=== PATIENT | male | born 1985 | race Caucasian/White ===

== ENCOUNTER 2022-05-15 08:19 | Outpatient (CLI) | payer BC, SELFPAY ==
--- NOTE | 2022-05-15 | ECHO_ITS ---
Patient Info Name: Mratinez Mack Age: 37 years : 1985 Gender: Male Ht: 68 in Wt: 190 lbs BSA: 2.05 m2 HR: 71 bpm BP: 111 / 64 mmHg Technical Quality: Good Exam Date: 05/15/2022 9:23 AM Exam Location: [facility] Patient Status: Outpatient Admit Date: 05/15/2022 Staff Ordering Physician: Milton, Tara VERMA Board Writer: Pooja Rodriguez RDCS Attending Provider: MiltonTara NP Exam Type: CA echo doppler color flow Study Info Indications M32.9 - SLE (SYSTEMIC LUPUS ERYTHEMATOSUS) (710.0) Complete two-dimensional, color flow and Doppler transthoracic echocardiogram is performed. Summary 1. Complete two-dimensional, color flow and Doppler transthoracic echocardiogram is performed. 2. Left ventricular chamber dimension is normal. 3. Left ventricular systolic function is normal, estimated at 65-70%. 4. The left ventricular diastolic function is normal. 5. E/e' 5 is not elevated. 6. Global longitudinal strain is normal at -19.6%. 7. There is trace mitral valve regurgitation. 8. No pulmonary hypertension, estimated pulmonary arterial systolic pressure is 22 mmHg. Left Ventricle E/e' 5 is not elevated. Global longitudinal strain is normal at -19.6%. Left ventricular chamber dimension is normal. Left ventricular systolic function is normal, estimated at 65-70%. The left ventricular diastolic function is normal. Right Ventricle Right ventricular chamber dimension is normal. Right ventricular systolic function is normal. Left Atria Left atrial chamber dimension is normal. Right Atria Right atrial chamber dimension is normal. Aortic Valve The aortic valve is trileaflet. There is no aortic valve stenosis. There is no aortic valve regurgitation. Pulmonic Valve There is no pulmonic regurgitation. Mitral Valve There is no mitral valve stenosis. There is trace mitral valve regurgitation. Tricuspid Valve There is no tricuspid valve regurgitation. No pulmonary hypertension, estimated pulmonary arterial systolic pressure is 22 mmHg. Pericardium/Pleural There is no pericardial effusion. Inferior Vena Cava Normal inferior vena cava with >50% collapse upon inspiration consistent with normal right atrial pressure, 5 mmHg. Aorta The aortic root size at the sinus of Valsalva is normal. Left Ventricular Outflow Tract Name Value Normal LVOT 2D LVOT Diameter 1.9 cm LVOT Doppler LVOT Peak Gradient 8 mmHg LVOT Mean Gradient 4 mmHg LVOT VTI 24 cm LVOT VTI/AV VTI Ratio 1.0 LVOT Stroke Volume 69 ml LVOT CO 5.1 l/min LVOT CI 2.5 l/min/m2 Pulmonic Valve Name Value Normal RVOT Doppler RVOT Peak Gradient
--- NOTE | 2022-05-16 07:51 | WPDPFTINT ---
PFT Procedure Performed PFT Procedure Performed Spirometry with Pre/Post Bronchodilator Plethysmography (Lung Vol) Diffusing Cap (DLCO) Flow Vol Loop PFT Interpretation This is a pulmonary function test with pre and post-bronchodilator spirometry, plethysmography and diffusing capacity. The test was performed and results interpreted in accordance with the 2019 and 2005 ATS/ERS Task Force guidelines respectively using the Global Lung Function Initiative-2012 reference equations. Patient demonstrated good effort and cooperation. Reproducibility criteria were met. The quality of the pre bronchodilator spirometry maneuver was Grade A and post bronchodilator spirometry maneuver was Grade A. Findings: Spirometry: The contour the inspiratory and expiratory flow tracing are normal. The pre bronchodilator FVC is 4.59 L, 92% predicted. The pre bronchodilator FEV1 is 3.58 L, 87% predicted. The pre bronchodilator FEV1: FVC ratio 78%. The post bronchodilator FVC is 4.79 L, representing a 4% increase. The post bronchodilator FEV1 is 3.74 L, representing a 5% increase. The post bronchodilator FEV1: FVC ratio 78%. Plethysmography: The total lung capacity is 8.02 L, 123% predicted. The functional residual volume is 3.85 L, 121% predicted. The residual volume is 2.98 L, 184% predicted. Diffusing capacity: The diffusion capacity unadjusted for hemoglobin or carboxyhemoglobin is 27.0, 81% predicted. The diffusing capacity adjusted for alveolar volume is 4.77, 93% predicted. Impression: The spirometry is normal without evidence of an obstructive abnormality. There is no significant improvement after inhaling a single dose of albuterol. The total lung capacity is normal with an increased residual volume. This is an abnormal but nonspecific lung volume pattern. The diffusing capacity is normal. There are no prior studies for comparison
== END 2022-05-15 08:20 | disposition home or self-care (01) ==
PROVIDERS: PCP Internal Medicine; Visit Provider Nurse Practitioner
DX: M32.9 Systemic lupus erythematosus, unspecified (principal)
CPT/HCPCS: 93306; 94060; 94726; 94729